=== PATIENT | female | born 1995 | race Caucasian/White ===

== ENCOUNTER 2023-12-12 15:20 | Emergency (ER) | payer OTHER ==
[~2023-12-12] VITALS: Ht 165.1 cm; Wt 105.0 kg
[2023-12-12 15:34] VITALS: BP 135/81; TEMP 97.9
[2023-12-12 16:42] VITALS: PULSE 110
== END 2023-12-12 16:42 | disposition home or self-care (01) ==
LOC: COL.ER 15:20
DX: T63.461A Toxic effect of venom of wasps, accidental (unintentional), initial encounter (principal)